=== PATIENT | female | born 1980 ===

== ENCOUNTER 2018-09-07 18:37 | Inpatient (IN) | payer OTHER ==
[~2018-09-07] VITALS: Ht 152.4 cm; Wt 140.0 kg
[2018-09-07] MEDS ORDERED: PRENATABS RX T1 EACH PO (20:11)
[2018-09-07] MEDS ORDERED: FE C TABLET1 EACH PO (20:12)
[2018-09-07] MEDS ORDERED: BISOPROLOL-HCT1 EACH PO (20:13)
[2018-09-11] MEDS ORDERED: GAS RELIEF125 MG PO (14:54)
[2018-09-11] MEDS ORDERED: DOCUSATE SODIU100 MG PO (14:54)
[2018-09-11] MEDS ORDERED: BISOPROLOL-HCT1 EACH PO (14:54)
[2018-09-11] MEDS ORDERED: PREPLUS CA-FE1 EACH PO (14:54)
[2018-09-11] MEDS ORDERED: IBUPROFEN400 MG PO (14:54)
== END 2018-09-11 15:26 | disposition home or self-care (01) | DRG 787 ==
LOC: SURG-SUITE 18:37 → LDR 18:37 → SURG-SUITE 09-08 20:50
PROVIDERS: ADMIT Obstetrics & Gynecology
PROC: 4A1HXCZ Monitoring of Products of Conception, Cardiac Rate, External Approach (ICD-10-PCS; 2018-09-07)
PROC: 3E033VJ Introduction of Other Hormone into Peripheral Vein, Percutaneous Approach (ICD-10-PCS; 2018-09-08)
PROC: 4A033R1 Measurement of Arterial Saturation, Peripheral, Percutaneous Approach (ICD-10-PCS; 2018-09-08)
PROC: 10D00Z1 Extraction of Products of Conception, Low, Open Approach (ICD-10-PCS; principal; 2018-09-08 18:00)
DX: O61.0 Failed medical induction of labor (principal); O41.03X0 Oligohydramnios, third trimester, not applicable or unspecified; Z22.330 Carrier of Group B streptococcus; Z3A.39 39 weeks gestation of pregnancy; Z37.0 Single live birth